=== PATIENT | female | born 1990 | race Caucasian/White ===

== ENCOUNTER 2016-04-27 18:12 | Inpatient (IN) | payer BC, OTHER ==
[~2016-04-27] VITALS: Ht 160 cm; Wt 115.5 kg
[~2016-04-27 18:12] MED LIST: ACET-1256 PO; ASPI-390 PO; BCPILLS PO; IBUP-1050 PO
[2016-04-27] MEDS ORDERED: LORAZEPAM 0.5 MG TAB SL STA (19:03)
--- NOTE | 2016-04-27 19:03 | EMERGENCY ROOM VISIT NOTE ---
History Report prepared by Tania: Levar Luther Under the Supervision of: Dr. Buster Collins D.O. First contact with patient: 18:25 Chief Complaint: MENTAL HEALTH EVALUATION Stated Complaint: PANIC ATTACK,WANTS TO HURT HERSELF History of Present Illness The patient is a 26 year old female who presents to the Emergency Room with complaints of sudden suicidal ideation beginning several hours prior to arrival. She associates a panic attack with today's symptoms. The patient notes there was a big family fight in March, which resulted in the patient being kick out back to her apartment. She states she had thoughts of hurting herself in March, so she went to [place] to visit friends. At that time, the patient notes she hoped the plane would fall out of the [place] or she would not wake up. The patient states she sought out a therapist, when she returned from her trip in [place]. She notes the appointment sessions have been going well until today. The patient states her appointment went well today, and her therapist encouraged the patient to talk to her mom about ways to move forward. She notes her mother and her got into a fight today, because they do not have the same view about the incident in March. The patient states she is explosive and yells, when she gets into a fight. She notes she had thoughts about driving off of a bridge today. The patient states her mother was driving her back to her apartment, when she began to have what she believed to be a panic attack, because she was scared to be left alone. She denies experiencing a panic attack in the past. The patient notes she is not on psychiatric medication, but she has an appointment coming up. She states she has not been able to see a psychiatrist yet due to insurance issues. The patient notes she only takes control. She denies having a hand gun at home. The patient denies every being admitted to the hospital for psychiatric issues. She denies smoking, alcohol use, and drug use. Source of History: patient Onset: several hours [employer] SCI[employer] Position: other Quality: other (suicidal ideation) Timing: other (sudden) Note: Associated symptoms: panic attack Review of Systems See HPI for pertinent positives & negatives. A total of 10 systems reviewed and were otherwise negative. Past Medical & Surgical Medical Problems: (1) No pertinent past medical history Family History Cancer Diabetes mellitus Heart disease Hypertension Social History Smoking Status: Never Smoker Marital Status: single Housing Status: lives with roommate Occupation Status: student Current/Historical Medications Scheduled Control Pills ( Control Pills), 1 TAB PO DAILY Ibuprofen (Advil), 600 MG PO Q4 Scheduled PRN Acetaminophen (Tylenol), 500 MG PO Q4 PRN for Pain Dvmddvc-Dofvnhseowtll-Zmwjbuyp (Excedrin Migraine), 2 TABS PO Q12 PRN for Migraine Allergies Coded Allergies: Amoxicillin (Verified Allergy, Intermediate, Diarrhea, 04/27/16) Clavulanic Acid (Verified Allergy, Intermediate, Diarrhea, 04/27/16) Physical Exam Vital Signs Date Time Temp Pulse Resp B/P Pulse Ox O2 Delivery O2 Flow Rate FiO2 04/27/16 18:24 36.8 112 24 158/120 97 Room Air Physical Exam GENERAL: Patient is awake, alert, tearful, and anxious appearing. EYES: The conjunctivae are clear. The pupils are round and reactive. EARS, NOSE, MOUTH AND THROAT: The nose is without any evidence of any deformity. Mucous membranes are moist tongue is midline NECK: The neck is nontender and supple. RESPIRATORY: Normal respiratory effort is noted there is no evidence of wheezing rhonchi or rales CARDIOVASCULAR: Regular rate and rhythm noted there no murmurs rubs or gallops normal S1 normal S2 GASTROINTESTINAL: The abdomen is soft. Bowel sounds are present in all quadrants. Abdomen is nontender MUSCULOSKELETAL/EXTREMITIES: There is no evidence of gross deformity full range of motion is noted in the hips and shoulders SKIN: There is no obvious evidence of any rash. There are no petechiae, pallor or cyanosis noted. NEUROLOGIC: Patient is awake alert and oriented x3. PSYCH: Anxious and guarded. Currently admitting to suicidal ideation both active and passive with plan to hurt herself by crashing her car. Medical Decision & Procedures Laboratory Results 04/27/16 19:07 Red Blood Count 4.62, Mean Corpuscular Volume 87.4, Mean Corpuscular Hemoglobin 30.3, Mean Corpuscular Hemoglobin Concent 34.7, Mean Platelet Volume 9.7, Neutrophils (%) (Auto) 58.2, Lymphocytes (%) (Auto) 31.4, Monocytes (%) (Auto) 8.1, Eosinophils (%) (Auto) 1.3, Basophils (%) (Auto) 0.6, Neutrophils # (Auto) 6.06, Lymphocytes # (Auto) 3.27, Monocytes # (Auto) 0.84, Eosinophils # (Auto) 0.13, Basophils # (Auto) 0.06 04/27/16 19:07 Test 04/27/16 18:40 04/27/16 19:07 Urine Color YELLOW Urine Appearance CLOUDY (CLEAR) Urine pH 6.0 (4.5-7.5) Urine Specific [place] 1.021 (1.000-1.030) Urine Protein NEG (NEG) Urine Glucose (UA) NEG (NEG) Urine Ketones NEG (NEG) Urine Occult Blood NEG (NEG) Urine Nitrite NEG (NEG) Urine Bilirubin NEG (NEG) Urine Urobilinogen NEG (NEG) Urine Leukocyte Esterase MODERATE (NEG) Urine WBC (Auto) >30 /hpf (0-5) Urine RBC (Auto) 0-4 /hpf (0-4) Urine Hyaline Casts (Auto) 1-5 /lpf (0-5) Urine Epithelial Cells (Auto) >30 /lpf (0-5) Urine Bacteria (Auto) 4+ (NEG) Urine Pathogenic Casts /lpf (0) Urine Yeast (Auto) (NONE PRSENT) Urine Test NEG (NEG) Urine Opiates Screen NEG (NEG) Urine Methadone, Qualitative NEG (NEG) Urine Barbiturates NEG (NEG) Urine Phencyclidine (PCP) Level NEG (NEG) Ur Amphetamine/Methamphetamine NEG (NEG) MDMA (Ecstasy) Screen NEG (NEG) Urine Benzodiazepines Screen NEG (NEG) Urine Cocaine Metabolite NEG (NEG) Urine Marijuana (THC) NEG (NEG) White Blood Count 10.40 K/uL (4.8-10.8) Red Blood Count 4.62 M/uL (4.2-5.4) Hemoglobin 14.0 g/dL (12.0-16.0) Hematocrit 40.4 % (37-47) Mean Corpuscular Volume 87.4 fL (80-100) Mean Corpuscular Hemoglobin 30.3 pg (25-34) Mean Corpuscular Hemoglobin Concent 34.7 g/dl (32-36) Platelet Count 432 K/uL (130-400) Mean Platelet Volume 9.7 fL (7.4-10.4) Neutrophils (%) (Auto) 58.2 % Lymphocytes (%) (Auto) 31.4 % Monocytes (%) (Auto) 8.1 % Eosinophils (%) (Auto) 1.3 % Basophils (%) (Auto) 0.6 % Neutrophils # (Auto) 6.06 K/uL (1.4-6.5) Lymphocytes # (Auto) 3.27 K/uL (1.2-3.4) Monocytes # (Auto) 0.84 K/uL (0.11-0.59) Eosinophils # (Auto) 0.13 K/uL (0-0.5) Basophils # (Auto) 0.06 K/uL (0-0.2) RDW Standard Deviation 42.1 fL (36.4-46.3) RDW Coefficient of Variation 13.1 % (11.5-14.5) Immature Granulocyte % (Auto) 0.4 % Immature Granulocyte # (Auto) 0.04 K/uL (0.00-0.02) Anion Gap 8.0 mmol/L (3-11) Est Creatinine Clear Calc Drug Dose 122.2 ml/min Estimated GFR () 108.1 Estimated GFR (Non- 93.2 BUN/Creatinine Ratio 12.4 (10-20) Calcium Level 8.8 mg/dl (8.5-10.1) Total Bilirubin 0.2 mg/dl (0.2-1) Direct Bilirubin < 0.1 mg/dl (0-0.2) Aspartate Amino Transf (AST/SGOT) 18 U/L (15-37) Alanine Aminotransferase (ALT/SGPT) 50 U/L (12-78) Alkaline Phosphatase 68 U/L (45-117) Total Protein 7.3 gm/dl (6.4-8.2) Albumin 3.2 gm/dl (3.4-5.0) Globulin 4.1 gm/dl (2.5-4.0) Albumin/Globulin Ratio 0.8 (0.9-2) Thyroid Stimulating Hormone (TSH) 2.680 uIu/ml (0.300-4.500) Ethyl Alcohol mg/dL < 3.0 mg/dl (0-3) Laboratory results per my review. Medications Administered Medications (Trade) Dose Ordered Sig/Eli Route Start Time Stop Time Status Last Admin Dose Admin Lorazepam (Ativan Tab) 0.5 mg NOW STAT SL 04/27/16 19:03 04/27/16 19:04 DC 04/27/16 19:03 0.5 MG Nitrofurantoin Macrocrystals (Macrobid Cap) 100 mg NOW STAT PO 04/27/16 20:45 04/27/16 20:46 DC 04/27/16 20:45 100 MG ED Course 184: The patient was evaluated in room A8. A complete history and physical examination were performed. 1902: Ordered Ativan Tab 0.5 mg SL. 1999: It is noted the patient is medically cleared. 2044: Ordered Macrobid Cap 100 mg PO. 2204: The patient will be admitted to [facility]. Medical Decision Etiologies such as mood disorder, infection, hypoglycemia, electrolyte abnormalities, cardiac sources, intracerebral event, toxicologic, neurologic, as well as others were entertained. Nursing notes reviewed. The patient is a 26-year-old female who has significant stressors right now. She presented to the emergency department for a mental health evaluation. The patient was medically cleared in the emergency department. She was found have signs of urinary tract infection and was started on Macrobid. She was evaluated by the mental health delegate disease case manager rn in the emergency department. She was referred for possible admission at [address] [place] [address] and was felt to be a good candidate for voluntary admission. She was admitted to [address] [place] [address]. Impression Primary Impression: Depression Additional Impressions: Suicidal ideation UTI (urinary tract infection) Scribe Attestation The scribe's documentation has been prepared under my direction and personally reviewed by me in its entirety. I confirm that the note above accurately reflects all work, treatment, procedures, and medical decision making performed by me. Departure Information Dispostion Mental Health Acute Care ([facility]) Referrals No Doctor, Assigned (PCP) Problem Qualifiers
[2016-04-27 19:17] LABS: BASO % 0.6 %; BASO ABS # 0.06 K/uL (0-0.2); COMPLETE YES; EOS % 1.3 %; HEMATOCRIT 40.4 % (37-47); IG% 0.4 %; LYMPH % 31.4 %; LYMPH ABS # 3.27 K/uL (1.2-3.4); MEAN CELL VOLUME 87.4 fL (80-100); MEAN CORPUSCULAR HEMOGLOBIN 30.3 pg (25-34); MEAN CORPUSCULAR HGB CONC 34.7 g/dl (32-36); MEAN PLATELET VOLUME 9.7 fL (7.4-10.4); MONO % 8.1 %; NEUT % 58.2 %; PLATELET COUNT 432 K/uL (130-400); RED BLOOD COUNT 4.62 M/uL (4.2-5.4)
[2016-04-27 19:25] LABS: URINE APPEARANCE CLOUDY (CLEAR); URINE BILIRUBIN NEG (NEG); URINE COLOR YELLOW; URINE EPITHELIAL CELL AUTO >30 /lpf (0-5); URINE NITRITE NEG (NEG); URINE SPECIFIC GRAVITY 1.021 (1.000-1.030); UROBILINOGEN NEG (NEG)
[2016-04-27 19:32] LABS: MANUAL MICROSCOPIC REQUIRED? NO; REVIEW REQ? YES
[2016-04-27 19:36] LABS: ALT/SGPT 50 U/L (12-78); BLOOD UREA NITROGEN 11 mg/dl (7-18); BUN/CREATININE RATIO 12.4 (10-20); CALCIUM 8.8 mg/dl (8.5-10.1); CARBON DIOXIDE 24 mmol/L (21-32); CHLORIDE 109 mmol/L (98-107); CREATININE 0.87 mg/dl (0.60-1.20); GLUCOSE 101 mg/dl (70-99); POTASSIUM 3.9 mmol/L (3.5-5.1); SODIUM 141 mmol/L (136-145)
[2016-04-27 19:41] LABS: BENZODIAZEPINE, URINE NEG (NEG); COCAINE,URINE NEG (NEG); PHENCYCLIDINE, URINE NEG (NEG)
[2016-04-27 19:49] LABS: ALB/GLOB RATIO 0.8 (0.9-2); ALKALINE PHOSPHATASE 68 U/L (45-117); AST/SGOT 18 U/L (15-37)
[2016-04-27] MEDS ORDERED: NITROFURANTOIN MONOHYDRATE 100 MG CAP PO STA (20:45)
[2016-04-27] MEDS ORDERED: NURSING VERBAL MED ORDER ONE (21:45)
[2016-04-27] MEDS ORDERED: SODIUM CHLORIDE 0.65% NA SOLN 45 ML (OCEAN) PRN (22:00)
[2016-04-27] MEDS ORDERED: hydrOXYzine HCL 25 MG TAB PO PRN ×2 (22:00)
[2016-04-27] MEDS ORDERED: BISMUTH SUBSALICYLATE PER ML OMNICELL CHARGE PO PRN (22:00)
[2016-04-27] MEDS ORDERED: ALUMINUM/MAGNESIUM SUSP 30 ML UDC PO PRN (22:00)
[2016-04-27] MEDS ORDERED: MAGNESIUM HYDROXIDE SUSP 30 ML UDC PO PRN (22:00)
[2016-04-27 22:13] VITALS: O2SAT 98
[2016-04-27 22:36] VITALS: BP 138/90; PULSE 64; TEMP 36.8; BMI 45.1
[2016-04-28] MEDS: ACETAMINOPHEN 325 MG TAB PO PRN ×2 (06:41→15:01)
[2016-04-28 06:43] VITALS: BP_SYST 120; BP_SYST 126; BP_DIAS 85; PULSE 101; PULSE 96; TEMP 36.7; Ht 160 cm; Wt 115.5 kg
[2016-04-28] MEDS ORDERED: NITROFURANTOIN MONOHYDRATE 100 MG CAP PO ONE (10:04)
[2016-04-28] MEDS ORDERED: IBUPROFEN 800 MG TAB PO PRN (10:15)
--- NOTE | 2016-04-28 11:27 | Psychiatric History & Physical ---
History Identifying Data Sammie Metcalf is a 26-year-old female who currently lives in alone in [place]. Sammie Metcalf was admitted on a 201 voluntary commitment. The patient was taken to the ED for assessment by her mother as experiencing SI. Chief Complaint "I lost it, I just didn't want her leaving that way". 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 She doesn't feel as connected here as when she attended college in [place] and experienced significant family conflict when she was home in [place], [place] over holiday break. Her parents felt she was too confrontational with her 16 yo sister and essentially ordered her back to [place] a week early. Sammie has fought with her sister before but maintains always verbal argument, no threats, denies violence to others in past 6 months, etc. She denies a history of violence to herself but did experience passive SI in Mar following the argument and being "kicked out". Since returning to [place] she has gone on to develop vegetative symptoms of depression. She is very low energy in the am and is taking longer to fall asleep. She doesn't enjoy much/doesn't want to get out of bed but forces herself to go to class. She was only eating 1 meal a day, generally something she picked up like fries or a shake. She hadn 't even left her apartment to get groceries for the first few weeks back to town. Her mother came to visit for a few days and the patient wanted to speak with her about the family argument after a therapy session yesterday. It didn' t go well by her report and mom was prepping to leave and the patient didn't feel safe. She feels hopeless at times like she would be better off and had thoughts about driving her car off of a bridge. She experienced a wave of emotions in a panic like attack and ultimately when she couldn't calm down mom convinced her to go to ED. Past Psychiatric History Current OP Treatment: psychiatrist (has intake appt on 05/15 at [facility]), therapist (Lynn Ballard) Prior OP Treatment: psychiatrist (elementary or middle school for "anger", 3 month trial of Trileptal) no prior inpatient hospitalizations or suicide attempts Past Medical/Surgical History History of Obesity: Yes History of HTN: No History of Diabetes: No History of Heart Disease: No History of Dyslipidemia: No History of Concussion/Seizure: No Problem List: (1) Frequent headaches (2) UTI (urinary tract infection) Allergies Allergies: Coded Allergies: Amoxicillin (Verified Allergy, Intermediate, Diarrhea, 04/27/16) Clavulanic Acid (Verified Allergy, Intermediate, Diarrhea, 04/27/16) Home Medications Scheduled Control Pills ( Control Pills), 1 TAB PO DAILY Ibuprofen (Advil), 600 MG PO Q4 Scheduled PRN Acetaminophen (Tylenol), 500 MG PO Q4 PRN for Pain Cehctwd-Acbgmwhmcprvd-Uqjwxcki (Excedrin Migraine), 2 TABS PO Q12 PRN for Migraine Family History Cancer Diabetes mellitus Heart disease Hypertension History of Obesity: Yes History of Diabetes: Yes (father) History of Dyslipidemia: No 21 yo sister has history of suicide attempts 32 yo sis, mother, paternal aunt with depression denies family history of bipolar disorder, denies personal history of manic symptoms Alcohol Use Alcohol Use In Past 12 Months: No Substance History Substance Use Past 12 Months: Hx of Inhalent Use: No Hx of Organic Substance Use: No Hx of Illegal/Street Drug Use: No Hx of Over the Counter Med Use: No Hx of Prescription Med Use: No Personal History Born in: [facility] Parental Status: Development: 2 younger sisters, an older sister never lived with them Education: graduated college, advanced degree Work History: student currently Relationship History: never Children: none Spiritual Affiliation: none reported Legal History: none Additional Comments: denied traumatic life events like abuse but feels isolated/rejected by family Review of Systems Psych: denies symptoms other than stated above Constitutional: fatigue Cardiovascular: denied GI: denied Neurologic: tension headaches, states moderate caffeine drinker (diet Coke) Remainder of 10 body systems also reviewed and denied other than noted above. Examination Physical Examination A physical exam was performed in the ER by Dr. Collins prior to admission to the unit. I accept that physical as correct/medical clearance for the inpatient physical exam. Vital Signs Vital Signs Past 12 Hours Date Time Temp Pulse Resp B/P Pulse Ox O2 Delivery O2 Flow Rate FiO2 04/28/16 06:43 36.7 96 15 126/85 101 120/85 Laboratory Results Last 24 Hours Test 04/27/16 18:40 04/27/16 19:07 Urine Color YELLOW Urine Appearance CLOUDY Urine pH 6.0 Urine Specific [place] 1.021 Urine Protein NEG Urine Glucose (UA) NEG Urine Ketones NEG Urine Occult Blood NEG Urine Nitrite NEG Urine Bilirubin NEG Urine Urobilinogen NEG Urine Leukocyte Esterase MODERATE Urine WBC (Auto) >30 /hpf Urine RBC (Auto) 0-4 /hpf Urine Hyaline Casts (Auto) 1-5 /lpf Urine Epithelial Cells (Auto) >30 /lpf Urine Bacteria (Auto) 4+ Urine Pathogenic Casts /lpf Urine Yeast (Auto) Urine Test NEG Urine Opiates Screen NEG Urine Methadone, Qualitative NEG Urine Barbiturates NEG Urine Phencyclidine (PCP) Level NEG Ur Amphetamine/Methamphetamine NEG MDMA (Ecstasy) Screen NEG Urine Benzodiazepines Screen NEG Urine Cocaine Metabolite NEG Urine Marijuana (THC) NEG White Blood Count 10.40 K/uL Red Blood Count 4.62 M/uL Hemoglobin 14.0 g/dL Hematocrit 40.4 % Mean Corpuscular Volume 87.4 fL Mean Corpuscular Hemoglobin 30.3 pg Mean Corpuscular Hemoglobin Concent 34.7 g/dl Platelet Count 432 K/uL Mean Platelet Volume 9.7 fL Neutrophils (%) (Auto) 58.2 % Lymphocytes (%) (Auto) 31.4 % Monocytes (%) (Auto) 8.1 % Eosinophils (%) (Auto) 1.3 % Basophils (%) (Auto) 0.6 % Neutrophils # (Auto) 6.06 K/uL Lymphocytes # (Auto) 3.27 K/uL Monocytes # (Auto) 0.84 K/uL Eosinophils # (Auto) 0.13 K/uL Basophils # (Auto) 0.06 K/uL RDW Standard Deviation 42.1 fL RDW Coefficient of Variation 13.1 % Immature Granulocyte % (Auto) 0.4 % Immature Granulocyte # (Auto) 0.04 K/uL Sodium Level 141 mmol/L Potassium Level 3.9 mmol/L Chloride Level 109 mmol/L Carbon Dioxide Level 24 mmol/L Anion Gap 8.0 mmol/L Blood Urea Nitrogen 11 mg/dl Creatinine 0.87 mg/dl Est Creatinine Clear Calc Drug Dose 122.2 ml/min Estimated GFR () 108.1 Estimated GFR (Non- 93.2 BUN/Creatinine Ratio 12.4 Random Glucose 101 mg/dl Calcium Level 8.8 mg/dl Total Bilirubin 0.2 mg/dl Direct Bilirubin < 0.1 mg/dl Aspartate Amino Transf (AST/SGOT) 18 U/L Alanine Aminotransferase (ALT/SGPT) 50 U/L Alkaline Phosphatase 68 U/L Total Protein 7.3 gm/dl Albumin 3.2 gm/dl Globulin 4.1 gm/dl Albumin/Globulin Ratio 0.8 Thyroid Stimulating Hormone (TSH) 2.680 uIu/ml Ethyl Alcohol mg/dL < 3.0 mg/dl Mental Examination During interview pt is: alert and oriented Appearance: appropriately groomed Eye contact is: fair Motor behavior is: no abnormal motor movements Speech: normal in rate, rhythm & volume Affect: depressed, tearful Mood is: depressed Thought process: clear, coherent Thought content: reality based without delusions Suicidal thought are: present (but passive), Plan: present (wreck car), Intent : denied Homicidal thoughts are: denied Hallucinations: denies auditory, denies visual Cognition: memory grossly intact, attention grossly intact Intelligence estimated to be: consistent with level of education Insight: limited Judgement: limited Impression / Recommendations Impression 26 yo female with history of some disruptive behavior in childhood and a strong family history of depression, admitted for SI and depression in context of family discord and adjustment issues to her graduate program. The patient is admitted to [facility] ([facility] inpatient mental health unit) on q 15 min checks (behavioral with suicide precautions) for safety. The patient will participate in group, recreational and milieu therapies and will be offered additional individual and family sessions as clinically appropriate. Inventory Assets Strengths: intelligent, readily identifies friendships from college Needs: family meeting, outpatient psychiatrist Risk Factors Assessment : Yes /single/: Yes Access to guns: No Substance use disorders: No Previous attempt: No Family history of suicide: Yes (sister attempted) Previous psychiatric stay: No Smoker: No (but goal oriented with regards to school) Protective Factors Assessment Employed: No Recommendations (1) Major depressive disorder, recurrent episode with anxious distress Risks/benefits/alternatives reviewed re: antidepressants for the treatment of depression and/or anxiety. The patient agreed to a trial of Lexapro 5 mg starting today, increase to 10 mg tomorrow am. (2) UTI (urinary tract infection) Macrobid first dose given in ED, will write for 5 day course given hx of recurrent UTI. Urine culture pending. CPT Code Initial Hospital Care: 20143
[2016-04-28] MEDS ORDERED: ESCITALOPRAM OXALATE 10 MG TAB PO ONE (12:00)
[2016-04-28] MEDS ORDERED: NURSING VERBAL MED ORDER ONE (14:45)
[2016-04-28] MEDS: [UNRECOGNIZED DRUG - OTHER] PO SCH (15:00)
[2016-04-28] MEDS: NITROFURANTOIN MONOHYDRATE 100 MG CAP PO SCH (21:44)
[2016-04-29] MEDS: ACETAMINOPHEN PO PRN (06:30)
[2016-04-29] MEDS: ASPIRIN PO PRN (06:30)
[2016-04-29] MEDS: CAFFEIN PO PRN (06:30)
[2016-04-29 06:46] VITALS: BP_SYST 134; BP_SYST 135; BP_DIAS 84; BP_DIAS 86; PULSE 95; PULSE 99; TEMP 36.8
[2016-04-29] MEDS: ESCITALOPRAM OXALATE 10 MG TAB PO SCH (09:07)
[2016-04-29] MEDS: NITROFURANTOIN MONOHYDRATE 100 MG CAP PO SCH ×2 (09:07→21:52)
[2016-04-29] MEDS: [UNRECOGNIZED DRUG - OTHER] PO SCH (09:08)
--- NOTE | 2016-04-29 14:35 | Psychiatric Progress Notes ---
Progress Note Date of Service Apr 29, 2016. Interval History 26 yo female admit on 04/27/16 on a 201 commitment for depression and SI during argument with mother. Chief Complaint "Akash helped us work some things out". Subjective Patient was seen & assessed interval progress reviewed with nursing. Headache resolved with Excedrin. She now admits to using Excedrin regularly in am with diet soda to "get going". She feels she had some positive feedback from mother. Notes some anxiety about school work with ongoing hospitalization. She is tolerating lexapro (headache predates). Review of Systems Psych: denies symptoms other than stated above Constitutional: denied Cardiovascular: denied GI: denied Neurologic: denied Remainder of 10 body systems also reviewed and denied other than noted above. Sleep Information Total Hours of Sleep: 6.50 Meal Information Percent of Breakfast Consumed: 0 Percent of Lunch Consumed: 100 Percent of Dinner Consumed: 100 Mental Status Exam During interview pt is: alert and oriented Appearance: appropriately groomed Eye contact is: fair Motor behavior is: no abnormal motor movements Speech: normal in rate, rhythm & volume Affect: other (broader) Mood is: depressed Thought process: clear, coherent Thought content: reality based without delusions Suicidal thought are: denied, Plan: denied, Intent: denied Homicidal thoughts are: denied Hallucinations: denies auditory, denies visual Cognition: memory grossly intact, attention grossly intact Intelligence estimated to be: consistent with level of education Insight: limited Judgement: limited Impression 26 yo female with history of some disruptive behavior in childhood and a strong family history of depression, admitted for SI and depression in context of family discord and adjustment issues to her graduate program. Continued Inpatient Care Continued inpatient hospitalization is medically necessary for ongoing monitoring and safety. Plan (1) Major depressive disorder, recurrent episode with anxious distress Risks/benefits/alternatives reviewed re: antidepressants for the treatment of depression and/or anxiety. The patient agreed to a trial of Lexapro 5 mg starting 04/28, increase to 10 mg 04/29/16. (2) UTI (urinary tract infection) 04/28-- Macrobid first dose given in ED, will write for 5 day course given hx of recurrent UTI. Urine culture pending. 04/29-- culture grew mixed skin camilo, will complete course as recommended by ED given hx of recurrent UTI (3) Parent/child conflict formal family meeting scheduled 04/30/16. Discharge / Aftercare Planning Psychiatrist: Name: Natalia Toribio Date of Appointment: May 15, 2016 Therapist: Name: Lynn Ballard -[facility] Appointment Notes: [facility] Visit Code E&M Code: 12190 Inventory Assets Strengths: intelligent, readily identifies friendships from college Needs: family meeting, outpatient psychiatrist Risk Factors Assessment : Yes /single/: Yes Substance use disorders: No Previous attempt: No Family history of suicide: Yes (sister attempted) Previous psychiatric stay: No Smoker: No (but goal oriented with regards to school) Protective Factors Assessment Employed: No Data Vital Signs Last 24 Hrs: Date Time Temp Pulse Resp B/P Pulse Ox O2 Delivery O2 Flow Rate FiO2 04/29/16 06:46 36.8 95 17 135/84 99 134/86 Meds Administered Last 24 Hrs: Meds Administered (Past 24Hrs) Medications (Trade) Dose Ordered Sig/Eli Route Start Time Stop Time Status Last Admin Dose Admin Lorazepam (Ativan Tab) 0.5 mg NOW STAT SL 04/27/16 19:03 04/27/16 19:04 DC 04/27/16 19:03 0.5 MG Nitrofurantoin Macrocrystals (Macrobid Cap) 100 mg NOW STAT PO 04/27/16 20:45 04/27/16 20:46 DC 04/27/16 20:45 100 MG Acetaminophen (Tylenol Tab) 650 mg Q4H PRN PO 04/27/16 22:00 04/28/16 19:03 DC 04/28/16 15:01 650 MG Ibuprofen (Motrin Tab) 800 mg TID PRN PO 04/28/16 10:15 05/28/16 10:14 04/28/16 10:34 800 MG Nitrofurantoin Macrocrystals (Macrobid Cap) 100 mg BID PO 04/28/16 22:00 05/03/16 21:59 04/29/16 09:07 100 MG Nitrofurantoin Macrocrystals (Macrobid Cap) 100 mg 1004 ONCE PO 04/28/16 10:04 04/28/16 10:18 DC 04/28/16 10:33 100 MG Escitalopram Oxalate (Lexapro Tab) 5 mg ONE ONCE PO 04/28/16 12:00 04/28/16 12:01 DC 04/28/16 12:37 5 MG Escitalopram Oxalate (Lexapro Tab) 10 mg QAM PO 04/29/16 09:00 05/29/16 08:59 04/29/16 09:07 10 MG Non-Formulary Medication (Non-Formulary Patient'S Own Med) 1 ea DAILY PO 04/28/16 15:00 05/28/16 14:59 04/29/16 09:08 1 EA Acetaminophen/ Aspirin/Caffeine (Excedrin) 2 tab Q6 PRN PO 04/29/16 00:00 05/29/16 00:00 04/29/16 06:30 2 TAB
[2016-04-29] MEDS: hydrOXYzine HCL 25 MG TAB PO SCH ×2 (22:47→22:58)
[2016-04-30 06:58] VITALS: BP_SYST 129; BP_SYST 134; BP_DIAS 85; PULSE 81; PULSE 90; TEMP 36.8
[2016-04-30] MEDS: [UNRECOGNIZED DRUG - OTHER] PO SCH (08:52)
[2016-04-30] MEDS: NITROFURANTOIN MONOHYDRATE 100 MG CAP PO SCH ×2 (08:52→22:30)
[2016-04-30] MEDS ORDERED: MCRB100 PO (09:35)
[2016-04-30] MEDS ORDERED: LXP10 PO (09:35)
[2016-04-30] MEDS ORDERED: ATR25 PO (09:35)
[2016-04-30] MEDS: ESCITALOPRAM OXALATE 10 MG TAB PO SCH (09:39)
--- NOTE | 2016-04-30 09:45 | Discharge Instructions ---
Discharge Information Report Includes Report will include the: Discharge Instructions & Summary Admission Admission Date / Time: Apr 27, 2016 at 21:35 Reason for Admission: Depression Discharge Discharge Diagnosis / Problem: Major depressive disorder, recurrent, with anxious distress Condition at Discharge: Good Discharge Goals Goal(s): Decrease discomfort, Improve disease control, Prevent Disease Progression Activity Recommendations Activity Limitations: resume your previous activity . Instructions / Follow-Up Instructions / Follow-Up . SPECIAL CARE INSTRUCTIONS: 1. Follow through with your scheduled aftercare appointments. If unable to keep an appointment, please call to reschedule. 2. Take your medication only as prescribed. Medication should not be changed or stopped without the approval of your doctor. In the event of worsening symptoms or concerns about side effects, contact your doctor immediately. 3. Utilize new healthy coping skills, anger management skills, and stress management skills learned during your hospitalization. Journal feelings and process them with a support person. Identify stressors or situations that may result in relapse, deterioration or inappropriate behaviors and develop a plan to deal with those issues. 4. If your coping skills are ineffective and you are in crisis, contact your outpatient providers for direction. If unable to reach your providers, please call the CAN HELP LINE AT or go to the closest Emergency Room. 5. Avoid alcohol and un-prescribed drugs. 6. You have been provided with the Mental Health Advance Directives Pamphlet for your review. AFTERCARE APPOINTMENTS: * Please call your insurance company prior to your scheduled appointment to confirm your aftercare providers are covered. Take your insurance information to your appointments. . Discharge / Aftercare Planning Psychiatrist: Name: Intake at [facility] Date of Appointment: May 15, 2016 Therapist: Name Of Therapist: Lynn Duvall over Matter Prof. Counseling Appointment Comments: [address] . Follow-Up Care Plan for Follow-Up Care: The patient will have prompt follow up with both her therapist and a psychiatric prescriber. Current Hospital Diet Patient's current hospital diet: Regular Diet Discharge Diet Recommended Diet: Regular Diet Procedures Procedures Performed: No Pending Studies Pending Studies at Discharge: No Medical Emergencies . Who to Call and When: Medical Emergencies: For questions or emergencies related to your hospital stay, please contact the Inpatient Behavioral Health Unit at [phone]. A psychologist research assistant is on-call 08/10 for the Behavioral Health Unit for emergencies At any time you feel your situation is an emergency, you may also call 911 immediately. . Non-Emergent Contact Non-Emergency issues call your: Psychiatrist, Therapist Advance Directives Existing Advance Directive: No Do You Have an Existing Mental: No Existing Living Will: No Existing Power of Chief Optometry Service: No Advance Directives Info Given: To Pt/S.O. 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. She doesn't feel as connected here as when she attended college in [place] and experienced significant family conflict when she was home in [place], [place] over holiday break. Her parents felt she was too confrontational with her 16 yo sister and essentially ordered her back to [place] a week early. Sammie has fought with her sister before but maintains always verbal argument, no threats, denies violence to others in past 6 months, etc. She denies a history of violence to herself but did experience passive SI in [place] following the argument and being "kicked out". Since returning to [place] she has gone on to develop vegetative symptoms of depression. She is very low energy in the am and is taking longer to fall asleep. She doesn't enjoy much/doesn't want to get out of bed but forces herself to go to class. She was only eating 1 meal a day, generally something she picked up like fries or a shake. She hadn 't even left her apartment to get groceries for the first few weeks back to town. Her mother came to visit for a few days and the patient wanted to speak with her about the family argument after a therapy session yesterday. It didn' t go well by her report and mom was prepping to leave and the patient didn't feel safe. She feels hopeless at times like she would be better off and had thoughts about driving her car off of a bridge. She experienced a wave of emotions in a panic like attack and ultimately when she couldn't calm down mom convinced her to go to ED. Admission Exam Per the Admitting provider: Please see attached H&P Hospital Course (1) Major depressive disorder, recurrent episode with anxious distress Risks/benefits/alternatives reviewed re: antidepressants for the treatment of depression and/or anxiety. The patient agreed to a trial of Lexapro 5 mg starting 04/28, increase to 10 mg 04/29/16. (2) UTI (urinary tract infection) 04/28-- Macrobid first dose given in ED, will write for 5 day course given hx of recurrent UTI. Urine culture pending. 04/29-- culture grew mixed skin camilo, will complete course as recommended by ED given hx of recurrent UTI (3) Parent/child conflict formal family meeting scheduled 04/30/16. Risk Factors Assessment : Yes /single/: Yes Substance use disorders: No Previous attempt: No Family history of suicide: Yes (sister attempted) Previous psychiatric stay: No Smoker: No (but goal oriented with regards to school) Protective Factors Assessment Employed: No Day of Discharge Assessment COURSE OF HOSPITALIZATION: During the patient's 3 day stay, patient was stabilized on Lexapro 10 mg daily. Although likely psychosomatic, the patient immediately began to feel that her palms were sweating and was hesitant to continue to take it. This was processed, encouraged to allow time for accommodation and reevaluation at her first outpatient visit. During her stay she process the issues leading to hospitalization including the conflicts at home, having been kicked out after having been perceived to be too aggressive with her younger sister. Family meeting will be held with the mother today at 1 PM. The patient has denied suicidal thinking throughout her stay. She wants to continue in her law program here at [facility] in continuing therapy with Lynn in [place] and has an appointment with sue lobo on May 15. She was diagnosed with a UTI during her stay and was placed on Macrobid which will continue until May 03. She also use when necessary Vistaril and eventually scheduled Vistaril at the time for sleep and anxiety. DAY OF DISCHARGE ASSESSMENT: Today the patient is requesting discharge. She is anxious to get back to her studies. She again reiterates her concern that she is having side effects to Lexapro after only 2 days. Encouraged her to allow time for accommodation and to look at the pattern. She is to report her side effects to her psychiatric prescriber whom she is scheduled to see on May 15. She denies any suicidal thinking. She says that her anxiety is "okay". Today she is casually and appropriately dressed. She is slightly disheveled as she is just gotten out of bed. Eye contact is good. Affect is somewhat flattened. Speech is of normal rate volume and tone. Thoughts are organized and goal directed and without evidence of thought disorder. Recent and remote memory are intact per conversation. Intelligence is estimated to be average. Insight and judgment are improved over admission. Laboratory 04/27/16 19:07 Red Blood Count 4.62, Mean Corpuscular Volume 87.4, Mean Corpuscular Hemoglobin 30.3, Mean Corpuscular Hemoglobin Concent 34.7, Mean Platelet Volume 9.7, Neutrophils (%) (Auto) 58.2, Lymphocytes (%) (Auto) 31.4, Monocytes (%) (Auto) 8.1, Eosinophils (%) (Auto) 1.3, Basophils (%) (Auto) 0.6, Neutrophils # (Auto) 6.06, Lymphocytes # (Auto) 3.27, Monocytes # (Auto) 0.84, Eosinophils # (Auto) 0.13, Basophils # (Auto) 0.06 04/27/16 19:07 Test 04/27/16 18:40 04/27/16 19:07 Urine Color YELLOW Urine Appearance CLOUDY (CLEAR) Urine pH 6.0 (4.5-7.5) Urine Specific [place] 1.021 (1.000-1.030) Urine Protein NEG (NEG) Urine Glucose (UA) NEG (NEG) Urine Ketones NEG (NEG) Urine Occult Blood NEG (NEG) Urine Nitrite NEG (NEG) Urine Bilirubin NEG (NEG) Urine Urobilinogen NEG (NEG) Urine Leukocyte Esterase MODERATE (NEG) Urine WBC (Auto) >30 /hpf (0-5) Urine RBC (Auto) 0-4 /hpf (0-4) Urine Hyaline Casts (Auto) 1-5 /lpf (0-5) Urine Epithelial Cells (Auto) >30 /lpf (0-5) Urine Bacteria (Auto) 4+ (NEG) Urine Pathogenic Casts /lpf (0) Urine Yeast (Auto) (NONE PRSENT) Urine Test NEG (NEG) Urine Opiates Screen NEG (NEG) Urine Methadone, Qualitative NEG (NEG) Urine Barbiturates NEG (NEG) Urine Phencyclidine (PCP) Level NEG (NEG) Ur Amphetamine/Methamphetamine NEG (NEG) MDMA (Ecstasy) Screen NEG (NEG) Urine Benzodiazepines Screen NEG (NEG) Urine Cocaine Metabolite NEG (NEG) Urine Marijuana (THC) NEG (NEG) White Blood Count 10.40 K/uL (4.8-10.8) Red Blood Count 4.62 M/uL (4.2-5.4) Hemoglobin 14.0 g/dL (12.0-16.0) Hematocrit 40.4 % (37-47) Mean Corpuscular Volume 87.4 fL (80-100) Mean Corpuscular Hemoglobin 30.3 pg (25-34) Mean Corpuscular Hemoglobin Concent 34.7 g/dl (32-36) Platelet Count 432 K/uL (130-400) Mean Platelet Volume 9.7 fL (7.4-10.4) Neutrophils (%) (Auto) 58.2 % Lymphocytes (%) (Auto) 31.4 % Monocytes (%) (Auto) 8.1 % Eosinophils (%) (Auto) 1.3 % Basophils (%) (Auto) 0.6 % Neutrophils # (Auto) 6.06 K/uL (1.4-6.5) Lymphocytes # (Auto) 3.27 K/uL (1.2-3.4) Monocytes # (Auto) 0.84 K/uL (0.11-0.59) Eosinophils # (Auto) 0.13 K/uL (0-0.5) Basophils # (Auto) 0.06 K/uL (0-0.2) RDW Standard Deviation 42.1 fL (36.4-46.3) RDW Coefficient of Variation 13.1 % (11.5-14.5) Immature Granulocyte % (Auto) 0.4 % Immature Granulocyte # (Auto) 0.04 K/uL (0.00-0.02) Anion Gap 8.0 mmol/L (3-11) Est Creatinine Clear Calc Drug Dose 122.2 ml/min Estimated GFR () 108.1 Estimated GFR (Non- 93.2 BUN/Creatinine Ratio 12.4 (10-20) Calcium Level 8.8 mg/dl (8.5-10.1) Total Bilirubin 0.2 mg/dl (0.2-1) Direct Bilirubin < 0.1 mg/dl (0-0.2) Aspartate Amino Transf (AST/SGOT) 18 U/L (15-37) Alanine Aminotransferase (ALT/SGPT) 50 U/L (12-78) Alkaline Phosphatase 68 U/L (45-117) Total Protein 7.3 gm/dl (6.4-8.2) Albumin 3.2 gm/dl (3.4-5.0) Globulin 4.1 gm/dl (2.5-4.0) Albumin/Globulin Ratio 0.8 (0.9-2) Thyroid Stimulating Hormone (TSH) 2.680 uIu/ml (0.300-4.500) Ethyl Alcohol mg/dL < 3.0 mg/dl (0-3) Date/Time Source Procedure Growth Status 04/27/16 18:40 Urine , Clean Catch Urine Culture - Final MORE THAN THREE TYPES OF ORGANISMS OR... Complete Total Time Total Time Spent (min): Greater than 30 minutes Total Time Included: examination of the patient, discharge planning, medication reconciliation, communication with other providers Tobacco Cessation at Discharge FDA approved Prescription: non-smoker
--- NOTE | 2016-04-30 14:02 | Psychiatric Progress Notes ---
Psychiatric Progress Note Date of Service Apr 30, 2016. Notes Patient had family meeting with mother in person and father by phone. She reported feeling more anxious and did not feel safe to leave the hospital, so discharge was canceled.
[2016-04-30] MEDS: CAFFEIN PO PRN (17:14)
[2016-04-30] MEDS: ACETAMINOPHEN PO PRN (17:14)
[2016-04-30] MEDS: ASPIRIN PO PRN (17:14)
[2016-04-30] MEDS: hydrOXYzine HCL 25 MG TAB PO SCH (22:30)
[2016-05-01 07:00] VITALS: BP_SYST 142; BP_SYST 144; BP_DIAS 90; BP_DIAS 93; PULSE 74; PULSE 84; TEMP 36.4
[2016-05-01] MEDS: NITROFURANTOIN MONOHYDRATE 100 MG CAP PO SCH (09:18)
[2016-05-01] MEDS: ESCITALOPRAM OXALATE 10 MG TAB PO SCH (09:18)
[2016-05-01] MEDS: [UNRECOGNIZED DRUG - OTHER] PO SCH (09:19)
== END 2016-05-01 11:49 | disposition home or self-care (01) | DRG 885 ==
LOC: C.EDB 18:12 → C.MHU 21:35
PROVIDERS: ADMIT Psychiatry & Neurology Child & Adolescent Psychiatry; ATTEND Psychiatry & Neurology Child & Adolescent Psychiatry
DX: F33.9 Major depressive disorder, recurrent, unspecified (principal); N39.0 Urinary tract infection, site not specified; R45.851 Suicidal ideations; Z68.42 Body mass index [BMI] 45.0-49.9, adult; E66.9 Obesity, unspecified; F41.9 Anxiety disorder, unspecified; R51 Headache; Z62.820 Parent-biological child conflict; Z79.1 Long term (current) use of non-steroidal anti-inflammatories (NSAID); Z79.3 Long term (current) use of hormonal contraceptives; Z79.899 Other long term (current) drug therapy